=== PATIENT | male | born 1990 | race Caucasian/White ===

== ENCOUNTER → 2017-01-08 | Outpatient (CLI) | payer OTHER | END | disposition short-term general hospital (02) | LOC: CLORTH 09:24 | DX: S83.422A Sprain of lateral collateral ligament of left knee, initial encounter (principal) ==

== ENCOUNTER → 2017-01-22 | Outpatient (CLI) | payer OTHER | END | disposition short-term general hospital (02) | LOC: CLORTH 11:11 | DX: S83.422A Sprain of lateral collateral ligament of left knee, initial encounter (principal); S83.512D Sprain of anterior cruciate ligament of left knee, subsequent encounter; M23.201 Derangement of unspecified lateral meniscus due to old tear or injury, left knee ==

== ENCOUNTER → 2017-03-05 | Outpatient (CLI) | payer OTHER | END | disposition short-term general hospital (02) | LOC: CLORTH 04:05 | DX: S83.422D Sprain of lateral collateral ligament of left knee, subsequent encounter (principal) ==

== ENCOUNTER → 2017-04-02 | Outpatient (CLI) | payer OTHER | END | disposition short-term general hospital (02) | LOC: CLORTH 03:18 | DX: S83.422D Sprain of lateral collateral ligament of left knee, subsequent encounter (principal) ==

== ENCOUNTER → 2017-05-05 | Outpatient (CLI) | payer OTHER | END | disposition short-term general hospital (02) | LOC: CLSURG 08:21 | DX: N63 Unspecified lump in breast (principal) ==